=== PATIENT | female | born 1965 | race Caucasian/White ===

== ENCOUNTER 2017-02-05 07:15 | Inpatient (IN) | payer MEDICAID ==
[2017-02-19] MEDS ORDERED: Celecoxib 200 MG Cap PO ONE (07:00)
[2017-02-19] MEDS ORDERED: Scopolamine 1.5 MG Transdermal Patch TRDERM SCH (07:00)
[2017-02-19] MEDS ORDERED: Succinylcholine/Normal Saline 200 MG/10 ML Syringe ONE (07:13)
[2017-02-19] MEDS ORDERED: fentaNYL 250 MCG/5 ML SDV ONE (07:13)
[2017-02-19] MEDS ORDERED: Neostigmine Methylsulfate 1 MG/ML 5 ML Syringe ONE (07:13)
[2017-02-19] MEDS ORDERED: Ondansetron 4 MG/2 ML SDV ONE (07:13)
[2017-02-19] MEDS ORDERED: Propofol 200 MG/20 ML SDV ONE (07:13)
[2017-02-19] MEDS ORDERED: Dexamethasone 4 MG/ML SDV ONE (07:13)
[2017-02-19] MEDS ORDERED: Rocuronium 50 MG/5 ML Vial ONE (07:13)
[2017-02-19] MEDS ORDERED: Albuterol/Ipratropium 3.0-0.5 MG/3 ML Neb Soln NEB ONE (08:00)
[2017-02-19] MEDS ORDERED: Dextrose 5%-Lactated Ringers 1,000 ML IV SCH (08:00)
[2017-02-19] MEDS ORDERED: Lactated Ringers 1,000 ML ONE (08:27)
[2017-02-19] MEDS ORDERED: Levofloxacin 500 MG/20 ML SDV ONE (08:36)
[2017-02-19] MEDS ORDERED: Levofloxacin/Dextrose 5%-Water 500 MG in Premix Bag 1 BAG IV ONE (09:00)
[2017-02-19] MEDS ORDERED: Ketamine 500 MG/5 ML MDV IV SCH (09:45)
[2017-02-19] MEDS ORDERED: Ropivacaine 60 ML, Dexamethasone 8 MG, EPINEPHrine 0.4 MG, Sodium Chloride 0.9% 17.6 ML NERVRT SCH ×4 (09:45)
[2017-02-19] MEDS ORDERED: Lidocaine 2% 100 MG/5 ML Syringe IVPUSH ONE (09:45)
[2017-02-19] MEDS ORDERED: Metoclopramide 10 MG/2 ML SDV IVPUSH ONE (12:00)
[2017-02-19] MEDS ORDERED: HYDROmorphone 1 MG/ML Syringe IVPUSH ONE (12:00)
[2017-02-19] MEDS ORDERED: Insulin Aspart 100 Units/ML 3 ML Pen SUBCUT ONE (12:10)
[2017-02-19] MEDS ORDERED: Meperidine PF 100 MG/ML Syringe IM ONE (12:18)
[2017-02-19] MEDS ORDERED: Albuterol/Ipratropium 3.0-0.5 MG/3 ML Neb Soln INH PRN (15:10)
[2017-02-19] MEDS ORDERED: Naloxone 0.4 MG/ML SDV IV PRN (15:18)
[2017-02-19] MEDS ORDERED: HYDROmorphone/Normal Saline 15 MG/30 ML PCA IV PRN (15:18)
[2017-02-19] MEDS ORDERED: diphenhydrAMINE 50 MG/ML SDV IV PRN (15:21)
[2017-02-19] MEDS ORDERED: hydrOXYzine HCl 50 MG/ML SDV IM PRN (16:00)
[2017-02-19] MEDS ORDERED: Ondansetron 4 MG/2 ML SDV IVPUSH PRN (16:00)
[2017-02-19] MEDS ORDERED: Labetalol 20 MG/4 ML Syringe IVPUSH PRN (16:00)
[2017-02-19] MEDS: Albuterol/Ipratropium 3.0-0.5 MG/3 ML Neb Soln INH SCH ×2 (16:29→21:09)
[2017-02-19] MEDS: Lidocaine 0.4%/D5W 2 GM/500 ML BAG IV SCH (16:29)
[2017-02-19] MEDS: FENTANYL PATCH CHECK TOP SCH ×2 (16:31→21:07)
[2017-02-19] MEDS: MVI, Adult with Vitamin K 10 ML, Thiamine 200 MG, Chromium/Copper/Mang/Selen/Zn 1 ML in... IV SCH ×4 (16:44)
[2017-02-19] MEDS: Pantoprazole 40 MG Vial IVPUSH SCH (16:45)
[2017-02-19] MEDS: Heparin Sodium 5,000 Units/ML Vial SUBCUT SCH (18:05)
[2017-02-19] MEDS: Formoterol/Mometasone 200-5 MCG 8.8 GM Inhaler IH SCH (21:07)
[2017-02-19] MEDS ORDERED: Insulin Aspart 100 Units/ML 3 ML Pen SUBCUT STA (22:08)
[2017-02-19] MEDS ORDERED: Insulin Detemir 100 Units/ML 3 ML Pen SUBCUT STA (22:08)
[2017-02-19] MEDS: Dextrose 5%-Lactated Ringers 1,000 ML IV SCH (22:33)
[2017-02-20] MEDS: Dextrose 5%-Lactated Ringers 1,000 ML IV SCH ×2 (03:03→11:04)
[2017-02-20] MEDS: Metoclopramide 10 MG/2 ML SDV IV PRN ×2 (03:17→16:08)
[2017-02-20] MEDS: Lidocaine 0.4%/D5W 2 GM/500 ML BAG IV SCH (03:25)
[2017-02-20] MEDS: Insulin Aspart 100 Units/ML 3 ML Pen SUBCUT PRN ×4 (04:17→22:21)
[2017-02-20] MEDS: Heparin Sodium 5,000 Units/ML Vial SUBCUT SCH ×2 (05:46→17:41)
[2017-02-20] MEDS ORDERED: Ondansetron 4 MG/2 ML SDV ONE (06:58)
[2017-02-20] MEDS: Albuterol/Ipratropium 3.0-0.5 MG/3 ML Neb Soln INH SCH ×4 (07:34→20:58)
[2017-02-20] MEDS: Formoterol/Mometasone 200-5 MCG 8.8 GM Inhaler IH SCH ×4 (07:36→21:27)
[2017-02-20] MEDS ORDERED: Docusate Sodium 100 MG Cap PO PRN (07:39)
[2017-02-20] MEDS ORDERED: ClonazePAM 0.5 MG Tab PO PRN (07:39)
[2017-02-20] MEDS ORDERED: Hypromellose 0.4% Ophth Soln 15 ML Bottle EYEBOTH PRN (07:39)
[2017-02-20] MEDS ORDERED: Albuterol 8 GM Inhaler INH PRN (07:39)
[2017-02-20] MEDS ORDERED: fentaNYL 25 MCG/HR Transdermal Patch TRDERM SCH (07:45)
[2017-02-20] MEDS ORDERED: Insulin Detemir 100 Units/ML 3 ML Pen SUBCUT ONE ×2 (08:00→20:00)
[2017-02-20] MEDS ORDERED: Dextrose 5%-Lactated Ringers 1,000 ML IV SCH ×2 (08:00→12:00)
[2017-02-20] MEDS: Promethazine 25 MG Tab PO PRN ×2 (08:06→18:11)
[2017-02-20] MEDS: Levofloxacin/Dextrose 5%-Water 500 MG in Premix Bag 1 BAG IV SCH (08:27)
[2017-02-20] MEDS: Celecoxib 200 MG Cap PO SCH (08:27)
[2017-02-20] MEDS: fentaNYL 25 MCG/HR Transdermal Patch TRDERM SCH (08:39)
[2017-02-20] MEDS: FENTANYL PATCH CHECK TOP SCH ×2 (09:20→20:59)
[2017-02-20] MEDS: Potassium Chloride 10 MEQ Cap.ER PO SCH ×3 (09:20→21:00)
[2017-02-20] MEDS: SCOPOLAMINE PATCH CHECK TOP SCH (09:21)
[2017-02-20] MEDS: Furosemide 40 MG Tab PO SCH (09:21)
[2017-02-20] MEDS: Loratadine 10 MG Tab.DIS PO SCH (09:23)
[2017-02-20] MEDS: Topiramate 100 MG Tab PO SCH ×2 (09:40→21:00)
[2017-02-20] MEDS: Fluticasone Propionate Nasal Spray 16 GM Bottle NASBOTH SCH ×2 (09:41→20:58)
[2017-02-20] MEDS: Modafinil 100 MG Tab PO SCH (09:49)
--- NOTE | 2017-02-20 10:23 | PN ---
DATE OF SERVICE: 02/20/2017 SUBJECTIVE: Tarah Reynoso is a 52-year-old female. She is postop day #1. Blood sugars have been 300, 430, 301, 436. Since surgery, she received 15 units of Levemir every 12 hours plus sliding scale. Pain is controlled. 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 Currently reporting some nausea, otherwise has had no other postoperative symptoms. OBJECTIVE: GENERAL: Tarah Reynoso is a 52-year-old female. She is alert and orientated. VITAL SIGNS: TPR is 100.5, 111, 18, blood pressure 119/60. HEENT: Negative. NECK: Supple. HEART: Regular rate and rhythm. LUNGS: Clear. ABDOMEN: Dressings dry and intact. Abdominal binder is on. Her MAJO drain put out 135 mL of a light pink serous drainage. EXTREMITIES: Without peripheral edema. ASSESSMENT: Laparoscopic gastric bypass surgery, liver biopsy, repair of diaphragmatic hernia, and excision of mediastinal lipoma for morbid obesity. Diaphragmatic hernia, lipoma, hepatomegaly. PLAN: 1. Decrease IV to 100 mL per hour. 2. Step-2 gastric bypass diet without cereal. 3. Levemir 25 units now subcutaneous. 4. Levemir 20 units subcutaneous at bedtime. 5. Home medications restarted. Phenergan 25 mg p.o. q.6 hours p.r.n. nausea; oxycodone 1 tablet p.o. t.i.d. p.r.n. pain; clonazepam 0.5 mg p.o. daily p.r.n.; albuterol inhaler 2 puffs every 4 hours p.r.n. wheezing and shortness of breath; Symbicort 160/4.5 mcg inhaler 2 puffs inhaled b.i.d.; estradiol/Estrace vaginal cream one applicator on Sunday, Sunday, and Sunday; Flonase 1 spray in each nostril b.i.d.; furosemide/Lasix 40 mg p.o. daily; Latuda 60 mg p.o. at bedtime, Claritin chewable 10 mg p.o. daily; modafinil 200 mg p.o. daily; potassium chloride 10 mEq p.o. t.i.d.; topiramate 100 mg b.i.d.; trazodone 150 mg p.o. at bedtime, fentanyl/Duragesic patch 25 mcg transderm every 72 hours; Wellbutrin 75 mg p.o. b.i.d. 6. 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 7. Dressing off. May shower. 8. Good pulmonary toilet encouraged. 9. Walk q.i.d. 10.We will evaluate p.r.n. or in a.m. Delia Lee PA-C /[id number]
[2017-02-20] MEDS: oxyCODONE 5 MG Tab PO PRN ×2 (10:26→18:11)
[2017-02-20] MEDS: Pantoprazole 40 MG Vial IVPUSH SCH (15:32)
[2017-02-20] MEDS: MVI, Adult with Vitamin K 10 ML, Thiamine 200 MG, Chromium/Copper/Mang/Selen/Zn 1 ML in... IV SCH ×4 (17:40)
[2017-02-20] MEDS: traZODone 50 MG Tab PO SCH (20:57)
[2017-02-20] MEDS: Lurasidone 40 MG Tab PO SCH (20:59)
[2017-02-20] MEDS: HYDROmorphone 2 MG Tab PO PRN (21:01)
[2017-02-21] MEDS: HYDROmorphone 2 MG Tab PO PRN (04:22)
[2017-02-21] MEDS: Insulin Aspart 100 Units/ML 3 ML Pen SUBCUT PRN ×4 (04:32→22:02)
[2017-02-21] MEDS: Heparin Sodium 5,000 Units/ML Vial SUBCUT SCH ×2 (06:01→17:56)
[2017-02-21] MEDS: Albuterol/Ipratropium 3.0-0.5 MG/3 ML Neb Soln INH SCH ×4 (07:14→20:32)
[2017-02-21] MEDS: Formoterol/Mometasone 200-5 MCG 8.8 GM Inhaler IH SCH ×2 (07:16→20:32)
[2017-02-21] MEDS: Metoclopramide 10 MG/2 ML SDV IV PRN (08:02)
[2017-02-21] MEDS: Levofloxacin/Dextrose 5%-Water 500 MG in Premix Bag 1 BAG IV SCH (08:28)
[2017-02-21] MEDS: Fluticasone Propionate Nasal Spray 16 GM Bottle NASBOTH SCH ×2 (08:29→20:35)
[2017-02-21] MEDS: metFORMIN 500 MG Tab PO SCH ×2 (08:29→16:38)
[2017-02-21] MEDS: Furosemide 40 MG Tab PO SCH (08:30)
[2017-02-21] MEDS: Celecoxib 200 MG Cap PO SCH (08:31)
[2017-02-21] MEDS: Potassium Chloride 10 MEQ Cap.ER PO SCH ×3 (08:32→20:34)
[2017-02-21] MEDS: Insulin Detemir 100 Units/ML 3 ML Pen SUBCUT SCH ×2 (08:39→22:01)
[2017-02-21] MEDS: Loratadine 10 MG Tab.DIS PO SCH (08:40)
[2017-02-21] MEDS: FENTANYL PATCH CHECK TOP SCH ×2 (08:41→20:33)
[2017-02-21] MEDS: SCOPOLAMINE PATCH CHECK TOP SCH (08:41)
[2017-02-21] MEDS: Modafinil 100 MG Tab PO SCH (08:47)
[2017-02-21] MEDS: Topiramate 100 MG Tab PO SCH ×2 (08:50→20:34)
[2017-02-21] MEDS ORDERED: ESTRADIOL VAG SCH (09:00)
[2017-02-21] MEDS ORDERED: Cyanocobalamin (Vitamin B12) 1,000 MCG/ML SDV IM ONE (09:00)
[2017-02-21] MEDS: Promethazine 25 MG Tab PO PRN ×2 (09:23→16:46)
--- NOTE | 2017-02-21 10:04 | PN ---
DATE OF SERVICE: 02/21/2017 SUBJECTIVE: Tarah had a temp max of 101.7. Blood sugars have been 304 and 240. She received 25 units of Levemir in the morning and 20 at bedtime. She has needed much encouragement in ambulating. OBJECTIVE: GENERAL: Tarah Reynoso is a 52-year-old female. VITAL SIGNS: TPR is 99.5, 111, 24, blood pressure is 126/59. HEENT: Negative. NECK: Supple. HEART: Regular rate and rhythm. LUNGS: Clear. ABDOMEN: Dressings dry and intact. Abdominal binder is on. EXTREMITIES: Without peripheral edema. ASSESSMENT: Laparoscopic gastric bypass surgery, liver biopsy, repair of diaphragmatic hernia, and excision of mediastinal lipoma for morbid obesity, diaphragmatic hernia, lipoma, and hepatomegaly on 02/19/2017. PLAN: 1. Metformin 1000 mg b.i.d. crush/split, or if unable to take a pill form, may try liquid. 2. Levemir 25 units subcutaneous b.i.d. 3. Continue good pulmonary toilet. 4. Record oral intake at bedside, 3 med cups per hour. 5. Recommend 8 short walks daily. Much encouragement given. 6. We will evaluate p.r.n. or in a.m. Delia Lee PA-C /[id number]
[2017-02-21] MEDS: oxyCODONE 5 MG Tab PO PRN ×2 (14:08→20:18)
[2017-02-21] MEDS: traZODone 50 MG Tab PO SCH (20:18)
[2017-02-21] MEDS: Lurasidone 40 MG Tab PO SCH (20:33)
[2017-02-22] MEDS: Heparin Sodium 5,000 Units/ML Vial SUBCUT SCH ×2 (06:01→17:04)
[2017-02-22] MEDS: Promethazine 25 MG Tab PO PRN (07:59)
[2017-02-22] MEDS: Formoterol/Mometasone 200-5 MCG 8.8 GM Inhaler IH SCH ×3 (08:45→20:40)
[2017-02-22] MEDS: Albuterol/Ipratropium 3.0-0.5 MG/3 ML Neb Soln INH SCH ×4 (08:45→20:39)
[2017-02-22] MEDS: Fluticasone Propionate Nasal Spray 16 GM Bottle NASBOTH SCH ×2 (09:30→20:37)
[2017-02-22] MEDS: Insulin Detemir 100 Units/ML 3 ML Pen SUBCUT SCH ×2 (09:32→21:00)
[2017-02-22] MEDS: FENTANYL PATCH CHECK TOP SCH ×2 (09:36→20:37)
[2017-02-22] MEDS: SCOPOLAMINE PATCH CHECK TOP SCH (09:37)
[2017-02-22] MEDS: Metoclopramide 10 MG Tab PO PRN ×2 (10:44→18:41)
[2017-02-22] MEDS: Celecoxib 200 MG Cap PO SCH (11:02)
[2017-02-22] MEDS: metFORMIN 500 MG Tab PO SCH ×2 (11:02→17:02)
[2017-02-22] MEDS: Potassium Chloride 10 MEQ Cap.ER PO SCH ×3 (11:03→20:38)
[2017-02-22] MEDS: Furosemide 40 MG Tab PO SCH (11:04)
[2017-02-22] MEDS: Modafinil 100 MG Tab PO SCH (11:04)
[2017-02-22] MEDS: Topiramate 100 MG Tab PO SCH ×2 (11:04→20:39)
[2017-02-22] MEDS: Loratadine 10 MG Tab.DIS PO SCH (11:05)
[2017-02-22] MEDS: Insulin Aspart 100 Units/ML 3 ML Pen SUBCUT PRN ×2 (15:59→21:00)
[2017-02-22] MEDS: oxyCODONE 5 MG Tab PO PRN (18:41)
[2017-02-22] MEDS: Lurasidone 40 MG Tab PO SCH (20:37)
[2017-02-22] MEDS: traZODone 50 MG Tab PO SCH (20:40)
[2017-02-23] MEDS: oxyCODONE 5 MG Tab PO PRN ×3 (04:41→20:49)
[2017-02-23] MEDS: Metoclopramide 10 MG Tab PO PRN (04:41)
[2017-02-23] MEDS: Heparin Sodium 5,000 Units/ML Vial SUBCUT SCH ×2 (06:05→17:55)
[2017-02-23] MEDS: Albuterol/Ipratropium 3.0-0.5 MG/3 ML Neb Soln INH SCH ×4 (07:54→21:02)
[2017-02-23] MEDS: Formoterol/Mometasone 200-5 MCG 8.8 GM Inhaler IH SCH ×2 (07:54→20:50)
[2017-02-23] MEDS: Insulin Detemir 100 Units/ML 3 ML Pen SUBCUT SCH ×2 (08:22→21:30)
[2017-02-23] MEDS: metFORMIN 500 MG Tab PO SCH ×2 (08:24→17:55)
[2017-02-23] MEDS: Loratadine 10 MG Tab.DIS PO SCH (08:25)
[2017-02-23] MEDS: Furosemide 40 MG Tab PO SCH (08:25)
[2017-02-23] MEDS: Topiramate 100 MG Tab PO SCH ×2 (08:25→20:50)
[2017-02-23] MEDS: Celecoxib 200 MG Cap PO SCH (08:25)
[2017-02-23] MEDS: Potassium Chloride 10 MEQ Cap.ER PO SCH ×3 (08:26→20:50)
[2017-02-23] MEDS: Fluticasone Propionate Nasal Spray 16 GM Bottle NASBOTH SCH ×2 (08:26→20:50)
[2017-02-23] MEDS: fentaNYL 25 MCG/HR Transdermal Patch TRDERM SCH (08:33)
[2017-02-23] MEDS: Modafinil 100 MG Tab PO SCH (08:33)
[2017-02-23] MEDS: FENTANYL PATCH CHECK TOP SCH ×2 (08:34→20:51)
[2017-02-23] MEDS: SCOPOLAMINE PATCH CHECK TOP SCH (08:35)
--- NOTE | 2017-02-23 10:08 | PN ---
DATE OF SERVICE: 02/22/2017 The patient has now become afebrile. Pulmonary toilet appears to be fairly good. Oral intake has been decent as well. She is on oral pain medication along with fentanyl patch. The blood sugar this morning is 122 so I think we will move the Levemir down to 10 units q.12 hours and continue with the metformin. She is complaining of some nausea, her IV is out and I will offer some oral Zofran. The plan will be to keep the patient until Sunday due to social issues and in terms of her living situation in [place]. This will also be helpful in terms of fine tuning her diabetic management over the next few days. Mj Sibley MD /[id number]
[2017-02-23] MEDS: Insulin Aspart 100 Units/ML 3 ML Pen SUBCUT PRN ×2 (12:50→21:30)
[2017-02-23] MEDS: traZODone 50 MG Tab PO SCH (20:49)
[2017-02-23] MEDS: Lurasidone 40 MG Tab PO SCH (20:51)
[2017-02-24] MEDS: Metoclopramide 10 MG Tab PO PRN ×3 (04:15→20:40)
[2017-02-24] MEDS: Insulin Aspart 100 Units/ML 3 ML Pen SUBCUT PRN ×4 (04:34→22:07)
[2017-02-24] MEDS: Promethazine 25 MG Tab PO PRN ×2 (06:20→17:30)
[2017-02-24] MEDS: Heparin Sodium 5,000 Units/ML Vial SUBCUT SCH ×2 (06:21→17:22)
[2017-02-24] MEDS: Albuterol/Ipratropium 3.0-0.5 MG/3 ML Neb Soln INH SCH ×4 (07:22→21:47)
[2017-02-24] MEDS: Formoterol/Mometasone 200-5 MCG 8.8 GM Inhaler IH SCH ×2 (07:22→21:48)
[2017-02-24] MEDS: Fluticasone Propionate Nasal Spray 16 GM Bottle NASBOTH SCH ×2 (08:59→21:48)
[2017-02-24] MEDS: Loratadine 10 MG Tab.DIS PO SCH (09:00)
[2017-02-24] MEDS: Topiramate 100 MG Tab PO SCH ×2 (09:00→21:48)
[2017-02-24] MEDS ORDERED: Potassium Chloride 10% 20 MEQ/15 ML Soln 15 ML UD Cup PO SCH (09:00)
[2017-02-24] MEDS: Celecoxib 200 MG Cap PO SCH (09:00)
[2017-02-24] MEDS: Furosemide 40 MG Tab PO SCH (09:00)
[2017-02-24] MEDS: metFORMIN 500 MG Tab PO SCH ×2 (09:00→17:22)
[2017-02-24] MEDS ORDERED: Magnesium Hydroxide 400 MG/5 ML Susp 30 ML Cup PO PRN (09:02)
[2017-02-24] MEDS: FENTANYL PATCH CHECK TOP SCH ×2 (09:02→21:48)
[2017-02-24] MEDS: SCOPOLAMINE PATCH CHECK TOP SCH (09:03)
[2017-02-24] MEDS: Bisacodyl 5 MG Tab PO SCH ×2 (09:52→21:48)
[2017-02-24] MEDS: Modafinil 100 MG Tab PO SCH (09:58)
[2017-02-24] MEDS ORDERED: Magnesium Hydroxide 400 MG/5 ML Susp 30 ML Cup PO ONE (10:00)
[2017-02-24] MEDS: oxyCODONE 5 MG Tab PO PRN ×2 (10:26→22:13)
[2017-02-24] MEDS: Insulin Detemir 100 Units/ML 3 ML Pen SUBCUT SCH ×2 (11:01→22:08)
[2017-02-24] MEDS ORDERED: Sodium Chloride 0.9% 10 ML Syringe FLUSH PRN (11:12)
[2017-02-24] MEDS ORDERED: Potassium Phosphates 20 MMOLE in Sodium Chloride 0.9% 250 ML IV SCH (13:00)
[2017-02-24] MEDS: traZODone 50 MG Tab PO SCH (21:48)
[2017-02-24] MEDS: Lurasidone 40 MG Tab PO SCH (21:48)
[2017-02-25] MEDS: Heparin Sodium 5,000 Units/ML Vial SUBCUT SCH ×2 (06:48→17:47)
[2017-02-25] MEDS: Albuterol/Ipratropium 3.0-0.5 MG/3 ML Neb Soln INH SCH ×4 (07:29→20:32)
[2017-02-25] MEDS: Formoterol/Mometasone 200-5 MCG 8.8 GM Inhaler IH SCH ×2 (07:29→20:24)
[2017-02-25] MEDS: Bisacodyl 5 MG Tab PO SCH ×2 (08:47→20:23)
[2017-02-25] MEDS: metFORMIN 500 MG Tab PO SCH ×2 (08:47→17:46)
[2017-02-25] MEDS: Celecoxib 200 MG Cap PO SCH (08:47)
[2017-02-25] MEDS: Furosemide 40 MG Tab PO SCH (08:48)
[2017-02-25] MEDS: Topiramate 100 MG Tab PO SCH ×2 (08:48→20:26)
[2017-02-25] MEDS: Fluticasone Propionate Nasal Spray 16 GM Bottle NASBOTH SCH ×2 (08:49→20:24)
[2017-02-25] MEDS: Loratadine 10 MG Tab.DIS PO SCH (08:49)
[2017-02-25] MEDS: SCOPOLAMINE PATCH CHECK TOP SCH (08:50)
[2017-02-25] MEDS: FENTANYL PATCH CHECK TOP SCH ×2 (08:50→20:27)
[2017-02-25] MEDS: oxyCODONE 5 MG Tab PO PRN ×2 (08:55→15:55)
[2017-02-25] MEDS: LORazepam 1 MG Tab PO PRN ×2 (08:56→22:22)
[2017-02-25] MEDS: Modafinil 100 MG Tab PO SCH (10:04)
[2017-02-25] MEDS: Insulin Detemir 100 Units/ML 3 ML Pen SUBCUT SCH ×2 (10:05→22:19)
[2017-02-25] MEDS: Insulin Aspart 100 Units/ML 3 ML Pen SUBCUT PRN (10:06)
[2017-02-25] MEDS: traZODone 50 MG Tab PO SCH (20:22)
[2017-02-25] MEDS: Lurasidone 40 MG Tab PO SCH (20:25)
[2017-02-26] MEDS: Heparin Sodium 5,000 Units/ML Vial SUBCUT SCH ×2 (06:01→18:39)
[2017-02-26] MEDS: Albuterol/Ipratropium 3.0-0.5 MG/3 ML Neb Soln INH SCH ×4 (07:38→20:48)
[2017-02-26] MEDS: Formoterol/Mometasone 200-5 MCG 8.8 GM Inhaler IH SCH ×2 (07:39→20:41)
[2017-02-26] MEDS: metFORMIN 500 MG Tab PO SCH ×2 (08:08→16:37)
[2017-02-26] MEDS ORDERED: Insulin Detemir 100 Units/ML 3 ML Pen SUBCUT ONE (09:00)
[2017-02-26] MEDS: Bisacodyl 5 MG Tab PO SCH ×2 (09:06→20:41)
[2017-02-26] MEDS: Celecoxib 200 MG Cap PO SCH (09:06)
[2017-02-26] MEDS: Loratadine 10 MG Tab.DIS PO SCH (09:06)
[2017-02-26] MEDS: Furosemide 40 MG Tab PO SCH (09:06)
[2017-02-26] MEDS: Fluticasone Propionate Nasal Spray 16 GM Bottle NASBOTH SCH ×2 (09:06→20:41)
[2017-02-26] MEDS: Modafinil 100 MG Tab PO SCH (09:07)
[2017-02-26] MEDS: Topiramate 100 MG Tab PO SCH ×2 (09:07→20:44)
[2017-02-26] MEDS: FENTANYL PATCH CHECK TOP SCH ×2 (09:08→20:43)
[2017-02-26] MEDS: SCOPOLAMINE PATCH CHECK TOP SCH (09:09)
[2017-02-26] MEDS: fentaNYL 25 MCG/HR Transdermal Patch TRDERM SCH (09:20)
--- NOTE | 2017-02-26 10:26 | PN ---
DATE OF SERVICE: 02/26/2017 SUBJECTIVE: Tarah had a total intake of 1390. She is voiding without difficulty. Blood sugars the last 2 have been 116 and 103. She did receive Levemir 15 units one time yesterday morning that was held last night due to a blood sugar of 116. She is up ambulating and has no questions or concerns today. Pain has been controlled. OBJECTIVE: GENERAL: Tarah Reynoso is a 52-year-old female. She is alert and orientated. VITAL SIGNS: Temperature is 98.9, pulse rate is 89, respirations 16, and blood pressure 133/68. HEENT: Negative. NECK: Supple. HEART: Regular rate and rhythm. LUNGS: Clear. ABDOMEN: Incisions look good. MAJO drain has put out 10 mL of a pink, serous drainage. EXTREMITIES: Without peripheral edema. ASSESSMENT: 1. Laparoscopic gastric bypass surgery, liver biopsy, repair of diaphragmatic hernia, excision of mediastinal lipoma for morbid obesity, diaphragmatic hernia, lipoma, and hepatomegaly on 02/19/2017. 2. Diabetes. PLAN: 1. Levemir 10 units subcu today one time only, ask in a.m. Continue good oral intake. 2. We will evaluate p.r.n. or in a.m. Delia Lee PA-C /[id number]
[2017-02-26] MEDS: LORazepam 1 MG Tab PO PRN ×2 (13:08→21:07)
[2017-02-26] MEDS: Insulin Aspart 100 Units/ML 3 ML Pen SUBCUT PRN ×2 (13:09→16:40)
[2017-02-26] MEDS: oxyCODONE 5 MG Tab PO PRN (17:34)
[2017-02-26] MEDS: traZODone 50 MG Tab PO SCH (20:39)
[2017-02-26] MEDS: Lurasidone 40 MG Tab PO SCH (20:42)
[2017-02-27] MEDS: Insulin Aspart 100 Units/ML 3 ML Pen SUBCUT PRN ×4 (04:22→21:57)
[2017-02-27] MEDS: Heparin Sodium 5,000 Units/ML Vial SUBCUT SCH ×2 (06:45→17:06)
[2017-02-27] MEDS ORDERED: Bupivacaine 0.5%/EPINEPHrine 1:200,000 50 ML MDV ONE (06:51)
[2017-02-27] MEDS ORDERED: Lidocaine 1% 50 ML MDV ONE (06:51)
[2017-02-27] MEDS: oxyCODONE 5 MG Tab PO PRN ×2 (07:08→20:13)
[2017-02-27] MEDS: Albuterol/Ipratropium 3.0-0.5 MG/3 ML Neb Soln INH SCH ×4 (07:31→21:52)
[2017-02-27] MEDS: Formoterol/Mometasone 200-5 MCG 8.8 GM Inhaler IH SCH ×2 (07:32→21:52)
[2017-02-27] MEDS: metFORMIN 500 MG Tab PO SCH ×2 (07:59→17:05)
[2017-02-27] MEDS: Bisacodyl 5 MG Tab PO SCH ×2 (08:42→20:19)
[2017-02-27] MEDS: Fluticasone Propionate Nasal Spray 16 GM Bottle NASBOTH SCH ×2 (08:44→21:53)
[2017-02-27] MEDS: Loratadine 10 MG Tab.DIS PO SCH (08:45)
[2017-02-27] MEDS: Furosemide 40 MG Tab PO SCH (08:46)
[2017-02-27] MEDS: Celecoxib 200 MG Cap PO SCH (08:46)
[2017-02-27] MEDS: FENTANYL PATCH CHECK TOP SCH ×2 (08:47→22:00)
[2017-02-27] MEDS: SCOPOLAMINE PATCH CHECK TOP SCH (08:47)
[2017-02-27] MEDS: Topiramate 100 MG Tab PO SCH ×2 (08:48→21:54)
[2017-02-27] MEDS: Insulin Detemir 100 Units/ML 3 ML Pen SUBCUT SCH ×2 (08:52→21:58)
[2017-02-27] MEDS: Modafinil 100 MG Tab PO SCH (08:58)
--- NOTE | 2017-02-27 09:04 | PN ---
DATE OF SERVICE: 02/23/2017 The patient has had a T-max of 100.0. Vital signs are otherwise stable. Oral intake was quite a bit better yesterday with the addition of Reglan and all these appeared to be well controlled. Blood sugars are somewhat high during the day yesterday, but apparently she was not able to take her morning metformin dose, so we gave Levemir 10 units q.12 level today in anticipation of getting the metformin in this morning. After the evening dose of the metformin had been given it was down to 179 otherwise we'll recheck some labs in the morning and maximize activity and work with pulmonary toilet. Mj Sibley MD /[id number]
--- NOTE | 2017-02-27 09:04 | PN ---
DATE OF SERVICE: 02/24/2017 The patient has been afebrile with stable vital signs. Oral intake is fairly good, although she does have some intermittent nausea. Her blood sugar is still running a little bit high. She is a type 1 diabetic, so we will not get her off insulin. We will move the Levemir up to 15 units from 10 units b.i.d. We will also give some bowel stimulation. MAJO drain can be removed tomorrow tentatively. Plan discharge on Sunday given the underlying social situation. Mj Sibley MD /[id number]
--- NOTE | 2017-02-27 09:05 | PN ---
DATE OF SERVICE: 02/25/2017 The patient has been afebrile with stable vital signs. Main problem is poor oral intake. She complains of some persistent nausea. We are unable to get an IV started. We'll try adding some Ativan today to the medication regimen. This may help with the nausea as well as some of the anxiety associated with that. Otherwise, I think we need to place a Miranda catheter, we will plan this for Sunday. If anesthesia would start an IV at some location we could give her some IV sedation plus local. Otherwise, we will use nitrous oxide plus local. Potential risks including bleeding, infection, pneumohemothorax and such were reviewed, and the patient wishes to proceed. The procedure will be scheduled for Sunday. Otherwise, her blood sugar control with increased Levemir dose was somewhat better and we will possibly try to get some oral intake over the next day or so. Mj Sibley MD /[id number]
[2017-02-27] MEDS: LORazepam 1 MG Tab PO PRN ×2 (15:20→20:51)
[2017-02-27] MEDS: traZODone 50 MG Tab PO SCH (20:13)
[2017-02-27] MEDS: Lurasidone 40 MG Tab PO SCH (21:54)
[2017-02-28] MEDS: Heparin Sodium 5,000 Units/ML Vial SUBCUT SCH (06:00)
[2017-02-28] MEDS: Albuterol/Ipratropium 3.0-0.5 MG/3 ML Neb Soln INH SCH ×2 (07:24→11:08)
[2017-02-28] MEDS: Formoterol/Mometasone 200-5 MCG 8.8 GM Inhaler IH SCH (07:24)
[2017-02-28] MEDS: metFORMIN 500 MG Tab PO SCH (07:53)
[2017-02-28] MEDS: Loratadine 10 MG Tab.DIS PO SCH (09:10)
[2017-02-28] MEDS: Fluticasone Propionate Nasal Spray 16 GM Bottle NASBOTH SCH (09:10)
[2017-02-28] MEDS: Topiramate 100 MG Tab PO SCH (09:11)
[2017-02-28] MEDS: Celecoxib 200 MG Cap PO SCH (09:12)
[2017-02-28] MEDS: Furosemide 40 MG Tab PO SCH (09:12)
[2017-02-28] MEDS: SCOPOLAMINE PATCH CHECK TOP SCH (09:12)
[2017-02-28] MEDS: Bisacodyl 5 MG Tab PO SCH (09:13)
[2017-02-28] MEDS: FENTANYL PATCH CHECK TOP SCH (09:13)
[2017-02-28] MEDS: Insulin Detemir 100 Units/ML 3 ML Pen SUBCUT SCH (09:15)
[2017-02-28] MEDS: Modafinil 100 MG Tab PO SCH (09:19)
[2017-02-28] MEDS: LORazepam 1 MG Tab PO PRN (09:32)
[2017-02-28] MEDS: oxyCODONE 5 MG Tab PO PRN (09:32)
[2017-02-28 10:53] VITALS: BP 130/63
--- NOTE | 2017-02-28 15:17 | OR ---
DATE OF PROCEDURE: 02/19/2017 PREOPERATIVE DIAGNOSIS: Morbid obesity. POSTOPERATIVE DIAGNOSES: 1. Morbid obesity. 2. Marked hepatomegaly. 3. Paraesophageal diaphragmatic hernia. 4. Mediastinal lipoma. ANESTHESIA: General. MANAGER PRODUCT MARKETING: Delia Lee PA-C. INDICATION FOR PROCEDURE: This is a 52-year-old female with longstanding morbid obesity and increasingly significant comorbidities. After preoperative evaluation and discussion, she wished to proceed with a gastric bypass procedure. Potential risks of procedure including bleeding, infection, leaks from various GI tract closures, problems with bowel obstruction over time as well as possibility of cardiopulmonary, septic, or hemorrhagic complications leading to were discussed, and the patient wishes to proceed. DETAILS OF PROCEDURE: The patient was taken to the operating room and placed in a supine position. After general endotracheal anesthesia was induced, she was converted to a lithotomy position. Villarreal catheter was inserted along with the gastrointestinal catheter, and the abdomen was prepped and draped. At 15 cm inferior, 5 cm left of xiphoid process, a transverse incision was made. The peritoneal cavity was entered under direct vision with an Optiview trocar and inflated to 15 mmHg pressure of CO2. Laparoscope was then reinserted. No underlying trocar insertion site injuries were seen. Following this, 5 additional trocars were placed across the upper and mid abdomen. General exploration was undertaken. The patient was noted to have a marked hepatomegaly with liver volume being roughly 2 to 3 times normal. The liver grossly fatty infiltrated. Sam-Cut needle biopsy was obtained from the left lobe of the liver. Minimal bleeding from the biopsy sites was controlled with electrocautery. At this point, the omentum was divided in the midline up to the level of the transverse colon. This allowed identification of the small bowel to the ligament of Treitz. Small bowel was then traced out 200 cm distal and that was divided transversely with a TIERRA stapler. Small bowel was then traced out, an additional 200 cm where the [id number] enteroenterostomy was accomplished with the internal firing of the Endo-TIERRA 60 mm stapler. The common opening was then closed transversely with the same stapler and the angles anastomosed, and mesenteric defect approximated with some 0 Ethibond stitch along with fibrin sealant, divided, end of the Mimi limb was from the mesentery for a few centimeters, which allowed an antecolic position of the Mimi limb up to the level of the gastroesophageal junction without tension. The liver was then retracted anteriorly. The patient was noted to have moderate-sized paraesophageal diaphragmatic hernia. The hernia was reduced and the peritoneum overlying incised and reflected downward. The crura were dissected from the esophagus on each side and then retroesophageal window was established. A posterior crural repair was then accomplished with 0 Ethibond sutures reinforced with PTFE pledgets. One additional suture was then placed anteriorly. During the course of dissection, a roughly ping-pong ball sized mediastinal lipoma was encountered and dissected free and delivered from the field for pathologic exam. At this point, the gastroesophageal balloon was then inflated 15 mL and pulled up snugly against the EG junction. Gastric wall over the apex balloon was then marked with electrocautery, and balloon catheter deflated and pulled up in the esophagus, and the omental tissue adjacent to the gastric cardia was incised allowing dissection behind the stomach at that level. Pouch formation was initiated with a transverse firing of the TIERRA stapler at the cauterized cyril on the gastric cardia. Pouch was then completed with 2 additional firings of TIERRA stapler up to and through the angle of His. Upon completion of the pouch, both staple lines were inspected and found to be intact. The anvil of a 21 mm EEA stapler was then attached to [place] sump type tube. The latter was brought down through the mouth and out through a small opening in the gastric pouch, allowing the anvil likewise to be passed down into the gastric pouch. Divided end of the Mimi limb was then opened and the main body of the EEA stapler was passed several centimeters into the Mimi limb of the small bowel, brought up the anvil, and united with it, thus creating the gastrojejunostomy. Upon removal of the stapler, double donuts of mucosa were noted with it. The small bowel was closed off with a vascular staple line. Gastrojejunostomy was reinforced with some 3-0 Vicryl seromuscular stitch along with fibrin sealant. Leak test was accomplished with injection of 120 mL of air in the gastric pouch while submerged with cefoxitin-containing saline solution. A single 10 flat Brenden-Hines drain was then placed through the left lateral trocar site and placed adjacent to the gastrojejunostomy from there up into the area overlying the splenic fossa. The remaining trocars were removed and peritoneal cavity was deflated. Incisions were closed with some 4- 0 Vicryl skin stitch. Drains were affixed with 4-0 Vicryl stitch as well. The patient was taken to the recovery room in satisfactory condition. There were no evident complications. At the initiation of procedure, the patient had, as part of enhanced recovery protocol bilateral transversus abdominis plane blocks consisting of 40 mL of saline with ropivacaine, dexamethasone, and epinephrine added. Physician home based assistant, Delia Lee, played an essential role in assisting in this case, helping to position the patient, retract structures as needed, suturing and cutting sutures when indicated. Her presence improved the patient's safety and decreased operative time. Mj Sibley MD /[id number]
--- NOTE | 2017-03-01 14:29 | DISCH ---
ADMISSION DIAGNOSES: 1. Morbid obesity. 2. Diabetes type 2, labile and uncontrolled with concerns for noncompliance to various factors, [id number] retinopathy. 3. History of diabetic ketoacidosis. 4. History of partial complex seizure disorder. 5. Possible subsegmental pulmonary embolism. 6. Mild thrombocytopenia in the past. 7. History of MRSA after panniculectomy. 8. Chronic back pain. 9. Peripheral neuropathy. 10.Asthma. 11.Migraines. 12.Urinary retention. 13.Atrophic vaginitis. 14.Osteoporosis. 15.Intermittent orthostatic hypotension with negative cosyntropin stimulation test, mediastinal tumor. 16.Fibromyalgia. 17.Sleep apnea, with use of CPAP. 18.Chronic pain, on opiates contract. 19.Attention deficit disorder without mention of hyperactivity. 20.Multiple sclerosis on verified diagnoses dyslipidemia, myalgia, and myositis. 21.Generalized anxiety disorder. 22.Posttraumatic stress disorder. 23.Major depression, chronic. 24.Asthma, chronic. DISCHARGE DIAGNOSES: 1. Laparoscopic gastric bypass surgery, liver biopsy, repair of diaphragmatic hernia, excision of mediastinal lipoma for morbid obesity, diaphragmatic hernia, lipoma, and hepatomegaly on 02/19/2017. 2. Diabetes type 2. HISTORY: Tarah Reynoso is a 52-year-old female with longstanding history of morbid obesity and increasing comorbidities. After preoperative evaluation and discussion of possible risks and possible complications, she wished to proceed with surgical procedure. HOSPITAL COURSE: Tarah had her surgery on 02/26/2017. She had no operative complications. On postop day #1, she was started on gastric bypass diet step 2 without cereal. She tolerated that well. Her blood sugars were continuously monitored and her insulin was adjusted accordingly. She received daily reinforcement of bariatric diet, education, and received lifestyle followup teaching and behavior therapy as indicated. Tarah's blood sugars were stabilized. Her education was adequate and she was able to verbalize her diet, her changes in medication, protein and liquid intake. She was independent with her activities of daily living. Vital signs were stable. Pain was controlled and she was able to be discharged to assisted living on 02/28/2017. PHYSICAL EXAMINATION: GENERAL: Tarah Reynoso is a 52-year-old female. She is alert and orientated. VITAL SIGNS: TPR 99.1, 89, 18. Blood pressure is 118/49. HEENT: She has no teeth, otherwise negative. NECK: Supple. HEART: Regular rate and rhythm. LUNGS: Clear. ABDOMEN: Sutures will be removed and Steri-Strips applied. Otherwise, soft and nontender. Abdominal binder, declines to wear. EXTREMITIES: Without peripheral edema. DISPOSITION: Discharged to her previous assisted living. FOLLOWUP APPOINTMENT: Delia Lee PA-C on 03/07/2017 at 11:00 a.m. HOME MEDICATIONS: Celebrex 200 mg one b.i.d. for 2 weeks, she has already picked this up at her last visit. Multivitamin 1 chewable twice daily. Tresiba, decrease dose to 20 units daily. Metformin 1000 mg oral twice daily which is a new prescription. She is to continue taking albuterol Ventolin inhaler 2 puffs every 4 hours. Her aspirin, butalbital, caffeine, the Fiorinal 1 tablet oral twice daily p.r.n. headache. Bacitracin ointment apply topical twice daily. Symbicort 160/4.5 mcg inhaler as directed. Klonopin 0.5 mg oral daily as needed for anxiety. Cod liver, vitamin, and petroleum, Otf clear ointment one applicator oral twice daily. Vitamin B12 of 1000 mcg sublingual daily. Dextran one drop both eyes as directed. Gold Pratt ultra diabetic cream one applicator twice daily. Colace 200 mg oral daily. Estrace 0.1% vaginal cream 1 applicator Sunday, Sunday, Sunday. Flonase 1 spray twice daily. Furosemide 40 mg oral daily. Glucagon HCL 1 mg injection as directed. Glucose tablets 3-6 as directed. Tresiba 20 units subcu daily. Imodium 20 mg oral as directed. Claritin 10 mg oral daily. Latuda 60 mg oral at bedtime. Antacid liquid 15 mL every 3 hours p.r.n. heartburn. Milk of magnesia 30 mL oral p.r.n. constipation, meclizine 1 tablet oral every 6 hours. Lubriderm daily moisturizer lotion one applicator twice daily. Modafinil 200 mg oral daily. Mylanta 15 mg oral every 3 hours. Natural fiber therapy 1 teaspoon oral daily. Nitrofurantoin 100 mg oral as directed. Nystatin one oral as needed. Zofran 4 mg oral every 6 hours p.r.n. nausea. Polyethylene glycol 37 mg oral daily. Potassium chloride 10 mEq three times a day. Phenergan 25 mg oral every 6 hours p.r.n. nausea. Topiramate 100 mg oral twice daily. Wellbutrin 75 mg oral twice daily. Klonopin 0.5 mg oral daily p.r.n. anxiety. Duragesic 25 mcg transdermal patch every 72 hours. Diabetic Tussin use as directed for cough. Oxycodone 1 tab three times a day p.r.n. pain. Trazodone 150 mg oral. Stop taking calcium citrate, vitamin D3, Bentyl, ibuprofen, NovoLog insulin, pantoprazole sodium, vitamin B complex. DISCHARGE DIET: Drink 8 to 10 glasses of water a day. Step-2 gastric bypass diet without cereal. ACTIVITY: No lifting greater than 10 pounds for 2 weeks. Activity, walk 8 times daily short distances in the halls of your apartment. Shower bathing, may shower. Keep site clean and dry. Wear abdominal binder for 2 weeks and then as tolerated. SPECIAL INSTRUCTIONS: Use incentive spirometer 10 times every hour while awake for 2 weeks. Check blood sugars 4 times a day and record readings and bring to clinic appointments. Keep a journal of protein and fluid intake and bring to clinic appointments. A prescription of Pro-Uli, protein supplement 4 ounces q.i.d. was written for 1 month with p.r.n. refills.
--- NOTE | 2017-03-12 12:06 | PN ---
DATE OF SERVICE: 02/27/2017 The patient is status post gastric bypass surgery and her Type 1 diabetes that appeared to be getting more controlled and plan is to proceed with discharge home tomorrow. She is arranging her ride and will likely be able to be discharged in the afternoon tomorrow. Mj Sibley MD /[id number]
--- NOTE | 2017-03-19 08:31 | OR ---
DATE OF PROCEDURE: 02/19/2017 ADDENDUM: An addendum to 02/19/2017 dictation. OPERATIVE PROCEDURES: 1. Laparoscopic Mimi-en-Y gastric bypass with long limb gastroenterostomy (30748). 2. Repair of paraesophageal diaphragmatic hernia (41677). 3. 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 4. Sam-Cut needle liver biopsy (11882). Mj Sibley MD /[id number]
== END 2017-02-28 11:32 | disposition home health service (06) | DRG 621 ==
LOC: JP.MS 02-19 05:44 → JP.SDS 02-19 05:44 → EDSTATUS 02-19 09:00 → JP.2SS 02-19 14:25
PROVIDERS: ADMIT Surgery; ATTEND Surgery
PROC: 3E0T3BZ Introduction of Anesthetic Agent into Peripheral Nerves and Plexi, Percutaneous Approach (ICD-10-PCS; principal; 2017-02-19)
PROC: 0D164ZA Bypass Stomach to Jejunum, Percutaneous Endoscopic Approach (ICD-10-PCS; principal; 2017-02-19)
PROC: 0BQS4ZZ (ICD-10-PCS; principal; 2017-02-19)
PROC: 0BQR4ZZ (ICD-10-PCS; principal; 2017-02-19)
PROC: 0FB24ZX Excision of Left Lobe Liver, Percutaneous Endoscopic Approach, Diagnostic (ICD-10-PCS; principal; 2017-02-19)
DX: E66.01 Morbid (severe) obesity due to excess calories (principal); Z68.41 Body mass index [BMI] 40.0-44.9, adult; R16.0 Hepatomegaly, not elsewhere classified; K44.9 Diaphragmatic hernia without obstruction or gangrene; D17.4 Benign lipomatous neoplasm of intrathoracic organs; K76.0 Fatty (change of) liver, not elsewhere classified; E10.42 Type 1 diabetes mellitus with diabetic polyneuropathy; E10.319 Type 1 diabetes mellitus with unspecified diabetic retinopathy without macular edema; Z79.4 Long term (current) use of insulin; J45.909 Unspecified asthma, uncomplicated; G47.30 Sleep apnea, unspecified; Z87.891 Personal history of nicotine dependence; Z88.6 Allergy status to analgesic agent; Z88.1 Allergy status to other antibiotic agents; Z88.0 Allergy status to penicillin; Z91.013 Allergy to seafood; Z88.2 Allergy status to sulfonamides; Z88.8 Allergy status to other drugs, medicaments and biological substances
CPT/HCPCS: 36415; 80048; 80053; 82962; 83036; 83735; 84100; 85025; 86850; 86900; 86901; 88304; 88307; 88313; 94640; 94640-76; A9270-GY; C9113; J0171; J1100; J1170; J1642; J1644; J1956; J2001; J2175; J2405; J2704; J2765; J2795; J3010; J3410; J3411; J3420; J7030; J7042; J7050; J7120; J7620

== ENCOUNTER 2017-03-02 16:01 | Inpatient (IN) | payer MEDICAID ==
[2017-03-02] MEDS ORDERED: Meclizine 25 MG Tab PO PRN (17:08)
[2017-03-02] MEDS ORDERED: Promethazine 25 MG Tab PO PRN (17:23)
[2017-03-02] MEDS ORDERED: Albuterol 8 GM Inhaler INH PRN (18:30)
[2017-03-02] MEDS ORDERED: MVI, Adult with Vitamin K 10 ML, Magnesium Sulfate 2 GM, Folic Acid 1 MG, Thiamine 100 ... IV ONE ×5 (18:30)
[2017-03-02] MEDS ORDERED: Polyethylene Glycol 3350 Powder 17 GM Packet PO PRN (18:30)
[2017-03-02] MEDS ORDERED: Acetaminophen 325 MG Tab PO PRN (18:30)
[2017-03-02] MEDS ORDERED: Acetaminophen 650 MG Supp RECTAL PRN (18:30)
[2017-03-02] MEDS: metFORMIN 500 MG Tab PO SCH (19:46)
[2017-03-02] MEDS: Multivitamins with Iron Tab.Chew PO SCH (21:03)
[2017-03-02] MEDS: traZODone 50 MG Tab PO SCH (21:03)
[2017-03-02] MEDS: oxyCODONE 5 MG Tab PO PRN (21:03)
[2017-03-02] MEDS: Topiramate 100 MG Tab PO SCH (21:03)
[2017-03-02] MEDS: Lurasidone 40 MG Tab PO SCH (21:04)
[2017-03-02] MEDS: Formoterol/Mometasone 200-5 MCG 8.8 GM Inhaler IH SCH (21:04)
[2017-03-02] MEDS: Fluticasone Propionate Nasal Spray 16 GM Bottle NASBOTH SCH (21:05)
[2017-03-02] MEDS ORDERED: Bisacodyl 10 MG Supp RECTAL PRN (21:55)
[2017-03-02] MEDS ORDERED: Lidocaine 1% 2 ML ONE (22:03)
[2017-03-02] MEDS: Potassium Chloride 20 MEQ in Premix Bag 2 BAG IV ONE (22:09)
[2017-03-02] MEDS: Magnesium Hydroxide 400 MG/5 ML Susp 30 ML Cup PO PRN (22:09)
[2017-03-02] MEDS: VERIFY FENT PATCH TOP SCH (22:11)
[2017-03-03] MEDS ORDERED: Lidocaine 1% 2 ML ONE (00:19)
[2017-03-03] MEDS ORDERED: Potassium Chloride 100 ML ONE (00:19)
[2017-03-03] MEDS: Potassium Chloride 20 MEQ in Premix Bag 2 BAG IV ONE (00:23)
[2017-03-03] MEDS: Dextrose 5%-Lactated Ringers 1,000 ML IV SCH ×2 (03:55→13:46)
[2017-03-03] MEDS ORDERED: Lidocaine 1% 50 ML MDV ONE (06:20)
[2017-03-03] MEDS ORDERED: Bupivacaine 0.5%/EPINEPHrine 1:200,000 50 ML MDV ONE (06:20)
[2017-03-03] MEDS ORDERED: Propofol 200 MG/20 ML SDV ONE (07:24)
[2017-03-03] MEDS ORDERED: Linezolid 200 MG/100 ML Bag IV ONE (07:25)
[2017-03-03] MEDS ORDERED: Midazolam 1 MG/ML 2 ML SDV ONE (07:25)
[2017-03-03] MEDS ORDERED: fentaNYL 100 MCG/2 ML SDV ONE (07:25)
[2017-03-03] MEDS: metFORMIN 500 MG Tab PO SCH ×2 (08:45→16:55)
[2017-03-03] MEDS ORDERED: Insulin Aspart 100 Units/ML 3 ML Pen SUBCUT ONE (09:13)
[2017-03-03] MEDS: Multivitamins with Iron Tab.Chew PO SCH ×2 (09:25→20:51)
[2017-03-03] MEDS: Furosemide 40 MG Tab PO SCH (09:26)
[2017-03-03] MEDS: Topiramate 100 MG Tab PO SCH ×2 (09:27→20:55)
[2017-03-03] MEDS: Celecoxib 200 MG Cap PO SCH (09:28)
[2017-03-03] MEDS: Loratadine 10 MG Tab PO SCH (09:29)
[2017-03-03] MEDS: Cyanocobalamin (Vitamin B12) 1,000 MCG Tab PO SCH (09:30)
[2017-03-03] MEDS: Docusate Sodium 100 MG Cap PO SCH (09:31)
[2017-03-03] MEDS: Formoterol/Mometasone 200-5 MCG 8.8 GM Inhaler IH SCH ×2 (09:32→20:51)
[2017-03-03] MEDS: Fluticasone Propionate Nasal Spray 16 GM Bottle NASBOTH SCH ×2 (09:32→20:54)
[2017-03-03] MEDS: VERIFY FENT PATCH TOP SCH ×2 (09:33→20:55)
[2017-03-03] MEDS: Insulin Detemir 100 Units/ML 3 ML Pen SUBCUT SCH (09:36)
[2017-03-03] MEDS: Modafinil 100 MG Tab PO SCH (10:00)
[2017-03-03] MEDS: oxyCODONE 5 MG Tab PO PRN ×2 (10:17→18:14)
[2017-03-03] MEDS ORDERED: 50% Dextrose in Water 50 ML Syringe IVPUSH PRN (12:28)
[2017-03-03] MEDS ORDERED: Glucagon,Human Recombinant 1 MG Vial IM PRN (12:28)
[2017-03-03] MEDS ORDERED: Glucose Gel 15 GM in 37.5 GM Tube PO PRN (12:28)
[2017-03-03] MEDS: Insulin Aspart 100 Units/ML 3 ML Pen SUBCUT PRN (12:38)
[2017-03-03] MEDS: Potassium Phosphates 25 MMOLE in Sodium Chloride 0.9% 250 ML IV SCH ×3 (12:53→20:51)
[2017-03-03] MEDS: Lurasidone 40 MG Tab PO SCH (20:55)
[2017-03-03] MEDS: traZODone 50 MG Tab PO SCH (20:56)
[2017-03-04] MEDS: Dextrose 5%-Lactated Ringers 1,000 ML IV SCH (01:07)
[2017-03-04] MEDS: Formoterol/Mometasone 200-5 MCG 8.8 GM Inhaler IH SCH ×2 (07:43→21:09)
[2017-03-04] MEDS: Insulin Aspart 100 Units/ML 3 ML Pen SUBCUT PRN ×4 (08:05→21:16)
[2017-03-04] MEDS: Fluticasone Propionate Nasal Spray 16 GM Bottle NASBOTH SCH ×2 (08:08→21:10)
[2017-03-04] MEDS: Insulin Detemir 100 Units/ML 3 ML Pen SUBCUT SCH (08:09)
[2017-03-04] MEDS: Cyanocobalamin (Vitamin B12) 1,000 MCG Tab PO SCH (08:10)
[2017-03-04] MEDS: Celecoxib 200 MG Cap PO SCH (08:11)
[2017-03-04] MEDS: Multivitamins with Iron Tab.Chew PO SCH ×2 (08:11→21:10)
[2017-03-04] MEDS: Docusate Sodium 100 MG Cap PO SCH (08:11)
[2017-03-04] MEDS: Topiramate 100 MG Tab PO SCH ×2 (08:11→21:13)
[2017-03-04] MEDS: Loratadine 10 MG Tab PO SCH (08:12)
[2017-03-04] MEDS: Furosemide 40 MG Tab PO SCH (08:12)
[2017-03-04] MEDS: metFORMIN 500 MG Tab PO SCH ×2 (08:12→16:38)
[2017-03-04] MEDS: oxyCODONE 5 MG Tab PO PRN ×2 (08:18→21:11)
[2017-03-04] MEDS: fentaNYL 25 MCG/HR Transdermal Patch TRDERM SCH (08:31)
[2017-03-04] MEDS: VERIFY FENT PATCH TOP SCH ×2 (08:32→21:12)
[2017-03-04] MEDS ORDERED: Sodium Chloride 0.9% 1,000 ML IV SCH (08:45)
--- NOTE | 2017-03-04 09:04 | OR ---
DATE OF PROCEDURE: 03/03/2017 PREOPERATIVE DIAGNOSIS: Limited peripheral venous access. POSTOPERATIVE DIAGNOSIS: Limited peripheral venous access. PROCEDURE: Insertion of double-lumen Miranda catheter via left subclavian vein approach ([id number]). ANESTHESIA: Local plus IV sedation. INDICATION FOR PROCEDURE: This is a 52-year-old status post Mimi-en-Y gastric bypass with very poor peripheral venous access, and this patient needing some IV access intermittently in the next few weeks. A Miranda catheter is to be placed. Potential risks of the procedure including bleeding, infection, pneumothorax, problems with the catheter becoming occluded were all reviewed with the patient and she wishes to proceed. DETAILS OF PROCEDURE: The patient was taken to the operating room and placed in a supine position. IV sedation was administered, after which the upper chest and neck areas were prepped and draped. The left subclavian area was anesthetized with 1% lidocaine and left subclavian vein was cannulated and from there the guidewire moved into the superior vena cava. Some additional local anesthetic was then injected over the left chest wall between at the point roughly 4 fingerbreadths below the initial puncture site and the initial puncture site. The stab wounds were then placed at each location and the tunneling device was placed from the area more inferior to the original puncture site and through this a Miranda catheter was pulled through. The catheter was cut such that the tip would lie in the area of the upper right atrium over the introducer and peel-away catheter. The Miranda catheter was then placed without difficulty. The initial puncture site was closed with a 4- 0 Vicryl subcuticular stitch and Steri-Strips, and Miranda catheter was itself sutured at skin level with 3-0 nylon stitch. Good inflow and outflow was noted. Both ports were flushed with heparinized saline. The patient was taken to the recovery room in satisfactory condition. There were no evident complications. Mj Sibley MD /[id number]
[2017-03-04] MEDS: Modafinil 100 MG Tab PO SCH ×2 (09:50→09:51)
[2017-03-04] MEDS: Metoclopramide 10 MG/2 ML SDV IVPUSH PRN (10:14)
--- NOTE | 2017-03-04 10:20 | PN ---
DATE OF SERVICE: 03/03/2017 HISTORY OF PRESENT ILLNESS: This is a 52-year-old, little over a week, status post Mimi-en- Y gastric bypass with a large amount of social and psychological problems, who is not doing well at home after the gastric bypass, more or less staying in bed most of the time. Given this, she was transferred here and admitted overnight. She has had quite a bit in the way of oral intake, and this morning had a Miranda catheter and diet will be resumed today. Her past medical history, social history, and family history are as per the previous H and P, which is on the chart. MEDICATIONS: Medications are as per the transfer sheets as well. REVIEW OF SYSTEMS: Shows the patient to have relatively poor oral intake and not caring for herself well at home. She has not moved her bowels recently. PHYSICAL EXAMINATION: GENERAL: The patient is alert and afebrile with stable vital signs. HEENT: Unremarkable. HEART: Regular rate and rhythm. S1 and S2 normal. LUNGS: Presently clear. ABDOMEN: Nondistended. She has slight redness of left lateral trocar site, but no signs of infection. PELVIC AND RECTAL: Deferred. LABORATORY DATA: Laboratory on admission showed white count of 12,000 and hemoglobin of 11. Electrolytes showed a marginally low potassium as is the phosphate on the low side. PLAN: The plan will be to continue the IV hydration via the Miranda catheter, which was placed today. She had been off the metformin and that will be restarted this morning, so it will not overly aggressively change the insulin dosage, and see how things go over the next 12 to 24 hours in terms of the additional adjustments to her insulin dosage. The patient is a type 1 diabetic with superimposed type 2 components of insulin resistance, which do significantly gastric bypass. Otherwise, we will maximize activity and work with the patient in terms of oral intake. She will be continued on the step-2 diet. We will be adding some IV vitamins tomorrow. Mj Sibley MD /[id number]
[2017-03-04] MEDS: ClonazePAM 0.5 MG Tab PO PRN (12:59)
[2017-03-04] MEDS ORDERED: Potassium Phosphates 25 MMOLE in Sodium Chloride 0.9% 250 ML IV ONE (13:30)
--- NOTE | 2017-03-04 16:25 | PN ---
DATE OF SERVICE: 03/04/2017 The patient has been afebrile with stable vital signs. Oral intake has been good. The IV has now been turned to normal saline to allow the administration of the IV potassium and with that her blood sugars have become quite good from the combination of the Levemir and metformin. Her potassium remained somewhat low today. We will give her some additional supplemental potassium, phosphate, and potassium acetate. She is allowed to get in the shower. She has been quite cooperative and willing to participate in her care with this hospitalization much better than previously noted. Mj Sibley MD /[id number]
[2017-03-04] MEDS ORDERED: Potassium Phosphates 20 MMOLE in Sodium Chloride 0.9% 150 ML IV ONE (17:30)
[2017-03-04] MEDS: traZODone 50 MG Tab PO SCH (21:12)
[2017-03-04] MEDS: Lurasidone 40 MG Tab PO SCH (21:12)
[2017-03-05] MEDS: Formoterol/Mometasone 200-5 MCG 8.8 GM Inhaler IH SCH ×2 (07:19→20:55)
[2017-03-05] MEDS: Fluticasone Propionate Nasal Spray 16 GM Bottle NASBOTH SCH ×2 (08:20→20:55)
[2017-03-05] MEDS: Celecoxib 200 MG Cap PO SCH (08:20)
[2017-03-05] MEDS: Cyanocobalamin (Vitamin B12) 1,000 MCG Tab PO SCH (08:21)
[2017-03-05] MEDS: Docusate Sodium 100 MG Cap PO SCH (08:22)
[2017-03-05] MEDS: Multivitamins with Iron Tab.Chew PO SCH ×2 (08:22→20:55)
[2017-03-05] MEDS: metFORMIN 500 MG Tab PO SCH ×2 (08:23→17:31)
[2017-03-05] MEDS: Topiramate 100 MG Tab PO SCH ×2 (08:24→20:57)
[2017-03-05] MEDS: Loratadine 10 MG Tab PO SCH (08:24)
[2017-03-05] MEDS: VERIFY FENT PATCH TOP SCH ×2 (08:25→20:56)
[2017-03-05] MEDS: oxyCODONE 5 MG Tab PO PRN ×2 (08:32→20:59)
[2017-03-05] MEDS: Modafinil 100 MG Tab PO SCH (08:33)
[2017-03-05] MEDS: Insulin Aspart 100 Units/ML 3 ML Pen SUBCUT PRN ×2 (08:35→11:39)
[2017-03-05] MEDS: Insulin Detemir 100 Units/ML 3 ML Pen SUBCUT SCH (08:36)
[2017-03-05] MEDS: Potassium Phosphates 20 MMOLE in Sodium Chloride 0.9% 150 ML IV SCH ×2 (08:43→11:39)
--- NOTE | 2017-03-05 09:20 | PN ---
DATE OF SERVICE: 03/05/2017 SUBJECTIVE: Tarah has been up ambulating. Oral intake was 2900. She has been tolerating her diet well. Vital signs have been stable. Blood sugars 249, 294, and 196. Blood sugar this morning was 150. She is on Levemir 20 units and metformin 1000 mg b.i.d. She has been up ambulating. She is in good spirits. Denies any pain. OBJECTIVE: GENERAL: Tarah Reynoso is a 52-year-old female. She is alert and orientated. VITAL SIGNS: TPR 97.4, 83, 17, blood pressure 137/62. HEENT: Negative. NECK: Supple. HEART: Regular rate and rhythm. LUNGS: Clear. ABDOMEN: Soft and nontender. EXTREMITIES: Without peripheral edema. ASSESSMENT: Uncontrolled diabetes, dehydration, status post Mimi-en-Y gastric bypass surgery, morbid obesity, and placement of central line on 03/03/2017. PLAN: 1. Levemir 30 units subcu today. 2. Discontinue Lasix. 3. Potassium acetate IV 60 mEq today. 4. K-Phos 40 mmol IV today. 5. Diabetic education, meet daily to establish good education and follow-through. 6. We will evaluate p.r.n. or in a.m. Delia Lee PA-C /[id number]
[2017-03-05] MEDS: Metoclopramide 10 MG/2 ML SDV IVPUSH PRN ×2 (14:40→21:45)
[2017-03-05] MEDS: Lurasidone 40 MG Tab PO SCH (20:55)
[2017-03-05] MEDS: traZODone 50 MG Tab PO SCH (20:57)
[2017-03-06] MEDS: Formoterol/Mometasone 200-5 MCG 8.8 GM Inhaler IH SCH ×2 (07:07→20:32)
[2017-03-06] MEDS: Docusate Sodium 100 MG Cap PO SCH (08:19)
[2017-03-06] MEDS: Celecoxib 200 MG Cap PO SCH (08:19)
[2017-03-06] MEDS: Cyanocobalamin (Vitamin B12) 1,000 MCG Tab PO SCH (08:20)
[2017-03-06] MEDS: Multivitamins with Iron Tab.Chew PO SCH ×2 (08:20→20:31)
[2017-03-06] MEDS: Topiramate 100 MG Tab PO SCH ×2 (08:20→20:35)
[2017-03-06] MEDS: Insulin Aspart 100 Units/ML 3 ML Pen SUBCUT PRN ×2 (08:26→12:32)
[2017-03-06] MEDS: metFORMIN 500 MG Tab PO SCH ×2 (08:27→17:43)
[2017-03-06] MEDS: Fluticasone Propionate Nasal Spray 16 GM Bottle NASBOTH SCH ×2 (08:27→20:32)
[2017-03-06] MEDS: Insulin Detemir 100 Units/ML 3 ML Pen SUBCUT SCH (08:28)
[2017-03-06] MEDS: oxyCODONE 5 MG Tab PO PRN ×2 (08:33→20:41)
[2017-03-06] MEDS: VERIFY FENT PATCH TOP SCH ×2 (10:14→20:35)
[2017-03-06] MEDS: Modafinil 100 MG Tab PO SCH (10:17)
[2017-03-06] MEDS: Loratadine 10 MG Tab PO SCH (12:32)
[2017-03-06] MEDS: Metoclopramide 10 MG/2 ML SDV IVPUSH PRN (15:55)
[2017-03-06] MEDS: Lurasidone 40 MG Tab PO SCH (20:33)
[2017-03-06] MEDS: traZODone 50 MG Tab PO SCH (20:36)
[2017-03-07] MEDS: Formoterol/Mometasone 200-5 MCG 8.8 GM Inhaler IH SCH ×2 (07:09→20:47)
[2017-03-07] MEDS: oxyCODONE 5 MG Tab PO PRN ×2 (08:32→21:00)
[2017-03-07] MEDS: metFORMIN 500 MG Tab PO SCH ×2 (08:33→16:49)
[2017-03-07] MEDS: Cyanocobalamin (Vitamin B12) 1,000 MCG Tab PO SCH (08:33)
[2017-03-07] MEDS: Loratadine 10 MG Tab PO SCH (08:33)
[2017-03-07] MEDS: Celecoxib 200 MG Cap PO SCH (08:33)
[2017-03-07] MEDS: Fluticasone Propionate Nasal Spray 16 GM Bottle NASBOTH SCH ×2 (08:33→20:47)
[2017-03-07] MEDS: Docusate Sodium 100 MG Cap PO SCH (08:34)
[2017-03-07] MEDS: Multivitamins with Iron Tab.Chew PO SCH ×2 (08:35→20:47)
[2017-03-07] MEDS: Insulin Aspart 100 Units/ML 3 ML Pen SUBCUT PRN ×2 (08:35→12:53)
[2017-03-07] MEDS: Topiramate 100 MG Tab PO SCH ×2 (08:35→20:50)
[2017-03-07] MEDS: Insulin Detemir 100 Units/ML 3 ML Pen SUBCUT SCH ×2 (08:49→16:47)
--- NOTE | 2017-03-07 09:32 | PN ---
DATE OF SERVICE: 03/07/2017 SUBJECTIVE: Tarah has been up ambulating. Afebrile. Blood sugars over the last 24 hours have been 232, 218, 63, and this morning 162. She received 30 units of Levemir last evening. Tarah states that when her blood sugar was 63, she was given regular apple juice, and she said it made her feel lightheaded. Requesting Bumex in anticipation of going home with the hopes of not having to take the potassium. We discussed aspartame was on her allergy list, and she said she is not sure why that was put on there and that she is not allergic to it. REVIEW OF SYSTEMS: Remainder of review of systems negative for any pertinent positives and negatives. OBJECTIVE: GENERAL: Tarah Reynoso is a 52-year-old female. She is alert and orientated. Face is flushed. VITAL SIGNS: TPR is 98.5, 89, 17, blood pressure 171/75. HEENT: Negative. NECK: Supple. HEART: Regular rate and rhythm. LUNGS: Clear. ABDOMEN: Incisions look good. The left trocar site is dry. There are scabs over area. Sutures are in place. There is no drainage, redness, or tenderness around the suture sites. EXTREMITIES: Without peripheral edema. ASSESSMENT: 1. Uncontrolled diabetes. 2. Dehydration. 3. Status post Mimi-en-Y gastric bypass surgery. 4. Morbid obesity. 5. Placement of central line on Sunday03/03/2017. PLAN: 1. Bumex 1 mg p.o. daily. 2. Discontinue sutures and place benzoin with Steri-Strips on incision. 3. Potassium acetate 40 mEq IV one time today. 4. KCl 40 mEq IV today. 5. Levemir 15 units b.i.d. 6. Continue to decline any juice or regular Jell-O to avoid hypoglycemia reaction. 7. We will evaluate p.r.n. or in a.m. Delia Lee PA-C /[id number]
[2017-03-07] MEDS: Bumetanide 1 MG Tab PO SCH (09:42)
[2017-03-07] MEDS: VERIFY FENT PATCH TOP SCH ×2 (09:43→20:49)
[2017-03-07] MEDS: fentaNYL 25 MCG/HR Transdermal Patch TRDERM SCH (09:49)
[2017-03-07] MEDS: Modafinil 100 MG Tab PO SCH (09:49)
[2017-03-07] MEDS: Potassium Chloride 20 MEQ in Premix Bag 1 BAG IV SCH ×2 (13:00→16:46)
[2017-03-07] MEDS: Metoclopramide 10 MG/2 ML SDV IVPUSH PRN (18:28)
[2017-03-07] MEDS: ClonazePAM 0.5 MG Tab PO PRN (19:15)
[2017-03-07] MEDS: Lurasidone 40 MG Tab PO SCH (20:49)
[2017-03-07] MEDS: traZODone 50 MG Tab PO SCH (20:50)
[2017-03-08] MEDS: Formoterol/Mometasone 200-5 MCG 8.8 GM Inhaler IH SCH ×2 (07:19→20:23)
[2017-03-08] MEDS: metFORMIN 500 MG Tab PO SCH ×2 (07:51→16:35)
[2017-03-08] MEDS: Insulin Detemir 100 Units/ML 3 ML Pen SUBCUT SCH ×2 (07:52→16:27)
[2017-03-08] MEDS: oxyCODONE 5 MG Tab PO PRN (07:57)
[2017-03-08] MEDS: Modafinil 100 MG Tab PO SCH (08:02)
[2017-03-08] MEDS: Celecoxib 200 MG Cap PO SCH (08:03)
[2017-03-08] MEDS: Docusate Sodium 100 MG Cap PO SCH (08:03)
[2017-03-08] MEDS: Bumetanide 1 MG Tab PO SCH (08:05)
[2017-03-08] MEDS: Topiramate 100 MG Tab PO SCH ×2 (08:05→20:21)
[2017-03-08] MEDS: VERIFY FENT PATCH TOP SCH ×2 (08:07→20:21)
[2017-03-08] MEDS: Multivitamins with Iron Tab.Chew PO SCH ×2 (08:08→20:20)
[2017-03-08] MEDS: Loratadine 10 MG Tab PO SCH (08:09)
[2017-03-08] MEDS: Cyanocobalamin (Vitamin B12) 1,000 MCG Tab PO SCH (08:10)
[2017-03-08] MEDS: Fluticasone Propionate Nasal Spray 16 GM Bottle NASBOTH SCH ×2 (08:11→20:20)
[2017-03-08] MEDS ORDERED: Insulin Detemir 100 Units/ML 3 ML Pen SUBCUT SCH (08:17)
[2017-03-08] MEDS: Metoclopramide 10 MG/2 ML SDV IVPUSH PRN ×2 (09:30→18:26)
--- NOTE | 2017-03-08 09:48 | PN ---
DATE OF SERVICE: 03/08/2017 SUBJECTIVE: Tarah's blood sugars have been 162, 287, 156, 176, and this morning it was 118. She is questioning if she can start on a step-3 diet. She has been up ambulating, participating in occupational therapy and physical therapy. Oral intake 2500 and she has consumed 50% of breakfast and lunch, and 100% of supper. REVIEW OF SYSTEMS: Remainder of review of systems negative for any pertinent positives and negatives. OBJECTIVE: GENERAL: Tarah Reynoso is a 52-year-old female. She is alert and orientated in good spirits this morning. VITAL SIGNS: TPR is 98.3, 93, 16, blood pressure 127/77. HEENT: Negative. NECK: Supple. HEART: Regular rate and rhythm. LUNGS: Clear. ABDOMEN: Soft, nontender. EXTREMITIES: Reveal trace peripheral edema. ASSESSMENT: 1. Status post Mimi-en-Y gastric bypass surgery. 2. Uncontrolled diabetes. 3. Dehydration, resolved. 4. Morbid obesity. 5. Unspecified surgical malabsorption. 6. B12 deficiency. 7. Placement of central line on 03/03/2017. PLAN: Advanced to step-3 gastric bypass diet. One new food at a time. Dietary Department was instructed, also that she has no teeth and is to be gluten free. We will check CBC, CMP, mag, phos in a.m. Continue to ambulate in the [place]. We will evaluate p.r.n. or in a.m. Delia Lee PA-C /[id number]
[2017-03-08] MEDS: ClonazePAM 0.5 MG Tab PO PRN (20:18)
[2017-03-08] MEDS: Lurasidone 40 MG Tab PO SCH (20:20)
[2017-03-08] MEDS: traZODone 50 MG Tab PO SCH (20:22)
[2017-03-08] MEDS ORDERED: Insulin Aspart 100 Units/ML 3 ML Pen SUBCUT ONE (21:40)
[2017-03-09] MEDS: Formoterol/Mometasone 200-5 MCG 8.8 GM Inhaler IH SCH ×2 (07:12→20:44)
[2017-03-09] MEDS: Docusate Sodium 100 MG Cap PO SCH (08:51)
[2017-03-09] MEDS: Cyanocobalamin (Vitamin B12) 1,000 MCG Tab PO SCH (08:51)
[2017-03-09] MEDS: metFORMIN 500 MG Tab PO SCH ×2 (08:51→17:12)
[2017-03-09] MEDS: Multivitamins with Iron Tab.Chew PO SCH ×2 (08:51→20:42)
[2017-03-09] MEDS: Bumetanide 1 MG Tab PO SCH (08:52)
[2017-03-09] MEDS: Loratadine 10 MG Tab PO SCH (08:52)
[2017-03-09] MEDS: Celecoxib 200 MG Cap PO SCH (08:52)
[2017-03-09] MEDS: Fluticasone Propionate Nasal Spray 16 GM Bottle NASBOTH SCH ×2 (08:52→20:43)
[2017-03-09] MEDS: Potassium Chloride 20 MEQ in Premix Bag 1 BAG IV SCH ×3 (08:53→14:14)
[2017-03-09] MEDS: VERIFY FENT PATCH TOP SCH ×2 (08:53→20:44)
[2017-03-09] MEDS: Topiramate 100 MG Tab PO SCH ×2 (08:54→20:46)
[2017-03-09] MEDS: Insulin Aspart 100 Units/ML 3 ML Pen SUBCUT SCH ×3 (08:54→17:15)
[2017-03-09] MEDS: Insulin Detemir 100 Units/ML 3 ML Pen SUBCUT SCH ×3 (08:56→17:12)
[2017-03-09] MEDS: oxyCODONE 5 MG Tab PO PRN ×2 (09:08→21:02)
[2017-03-09] MEDS: Modafinil 100 MG Tab PO SCH (09:08)
--- NOTE | 2017-03-09 10:15 | PN ---
DATE OF SERVICE: 03/09/2017 SUBJECTIVE: Tarah's blood sugars over the past 24 hours starting at 0700 hours have been 118, 301, 312, and 373. She has been receiving Levemir 12 units twice daily, metformin a 1000 mg p.o. b.i.d. When her blood sugar was elevated over 300 last night, she did have 15 units of NovoLog. Potassium this morning was 3.5. She is getting Bumex, so that is holding her potassium better than the Lasix. Creatinine this morning was 0.7, hemoglobin is 12.2. Tarah did report she did not feel well after eating. She was just started on a step-3 gastric bypass diet. Orders were written to Dietary, that this was her first. She is just starting step-3, one new food a day, no eggs and upper food for her. She is unable to make her own choices. The patient has no teeth and she should be gluten free. The patient at noon received turkey, corn, mashed potatoes, and carrots, and for supper she received a full tray also, but only ate rice and applesauce. REVIEW OF SYSTEMS: Remainder of review of systems negative for any pertinent positives and negatives. OBJECTIVE: GENERAL: Tarah Reynoos is a 52-year-old female. She is alert and orientated, in good spirits this morning. VITAL SIGNS: TPR is 98.5, 96, 18, blood pressure 163/72. HEENT: Negative. NECK: Supple. HEART: Regular rate and rhythm. LUNGS: Clear. ABDOMEN: Soft and nontender. EXTREMITIES: Without peripheral edema. ASSESSMENT: 1. Status post Mimi-en-Y gastric bypass surgery. 2. Uncontrolled diabetes, type 1. 3. Dehydration, resolved. 4. Morbid obesity. 5. Unspecified surgical malabsorption. 6. B12 deficiency. 7. Placement of central line on 03/03/2017 for inadequate peripheral access. PLAN: KCl of 60 mEq in 3 divided doses with lidocaine IV today. After consultation with Delma Mendoza RN, early childhood educator aide and certified bariatric nurse, she is to have 1 unit of NovoLog with each meal and increase Levemir to 20 units b.i.d. Check CBC, CMP, mag, phos in a.m. Madie Marques RD, will be notified with some reconciliation in regard to Tarah getting the correct diet in regard to she is a new Mimi-en-Y just starting step-3 and also with some concerns of getting her diabetes under control. She will be planning to be discharged on 03/12/2017. Delia Lee PA-C /[id number]
--- NOTE | 2017-03-09 10:24 | PN ---
DATE OF SERVICE: 03/06/2017 The patient has been afebrile with stable vital signs. She did have a 1-month low blood sugar of 35 last evening. This came up satisfactorily. We will have certified adapted physical educator review the diabetic management today and see what we can do to avoid those low blood sugar episodes. Otherwise, we will continue replenishing the potassium and tentatively plan for discharge home on Sunday with discharge planning working on that. It is possible there may not be sufficient nursing to help her set up things at home and we might need to keep her until Sunday. Mj Sibley MD /[id number]
[2017-03-09] MEDS: Insulin Aspart 100 Units/ML 3 ML Pen SUBCUT PRN ×2 (13:14→17:14)
[2017-03-09] MEDS: Lurasidone 40 MG Tab PO SCH (20:44)
[2017-03-09] MEDS: traZODone 50 MG Tab PO SCH (20:45)
[2017-03-09] MEDS: Metoclopramide 10 MG/2 ML SDV IVPUSH PRN (21:03)
[2017-03-10] MEDS: Formoterol/Mometasone 200-5 MCG 8.8 GM Inhaler IH SCH ×2 (07:16→20:54)
[2017-03-10] MEDS: metFORMIN 500 MG Tab PO SCH ×2 (07:58→16:50)
[2017-03-10] MEDS: Insulin Detemir 100 Units/ML 3 ML Pen SUBCUT SCH ×2 (07:58→16:49)
[2017-03-10] MEDS: Insulin Aspart 100 Units/ML 3 ML Pen SUBCUT PRN ×3 (07:59→16:51)
[2017-03-10] MEDS: Insulin Aspart 100 Units/ML 3 ML Pen SUBCUT SCH ×3 (07:59→16:51)
[2017-03-10] MEDS: Fluticasone Propionate Nasal Spray 16 GM Bottle NASBOTH SCH ×2 (08:08→20:54)
[2017-03-10] MEDS: oxyCODONE 5 MG Tab PO PRN ×2 (08:18→21:03)
[2017-03-10] MEDS: Modafinil 100 MG Tab PO SCH (08:52)
[2017-03-10] MEDS: VERIFY FENT PATCH TOP SCH ×2 (08:52→20:48)
[2017-03-10] MEDS: Docusate Sodium 100 MG Cap PO SCH (08:53)
[2017-03-10] MEDS: Cyanocobalamin (Vitamin B12) 1,000 MCG Tab PO SCH (08:54)
[2017-03-10] MEDS: Multivitamins with Iron Tab.Chew PO SCH ×2 (08:54→20:53)
[2017-03-10] MEDS: Topiramate 100 MG Tab PO SCH ×2 (08:54→20:55)
[2017-03-10] MEDS: Loratadine 10 MG Tab PO SCH (08:54)
[2017-03-10] MEDS: Bumetanide 1 MG Tab PO SCH (08:54)
[2017-03-10] MEDS: Celecoxib 200 MG Cap PO SCH (08:54)
[2017-03-10] MEDS: fentaNYL 25 MCG/HR Transdermal Patch TRDERM SCH (09:01)
[2017-03-10] MEDS: Magnesium Hydroxide 400 MG/5 ML Susp 30 ML Cup PO PRN (09:01)
[2017-03-10] MEDS: Spironolactone 25 MG Tab PO SCH (11:28)
[2017-03-10] MEDS: Metoclopramide 10 MG Tab PO PRN ×2 (14:53→21:36)
[2017-03-10] MEDS ORDERED: Potassium Phosphates 15 MMOLE in Sodium Chloride 0.9% 150 ML IV SCH (17:00)
[2017-03-10] MEDS: Potassium Phosphates 15 MMOLE in Sodium Chloride 0.9% 150 ML IV SCH ×2 (18:04→21:03)
[2017-03-10] MEDS: Lurasidone 40 MG Tab PO SCH (20:54)
[2017-03-10] MEDS: traZODone 50 MG Tab PO SCH (20:55)
[2017-03-11] MEDS: Potassium Phosphates 15 MMOLE in Sodium Chloride 0.9% 150 ML IV SCH (00:38)
[2017-03-11] MEDS: Formoterol/Mometasone 200-5 MCG 8.8 GM Inhaler IH SCH ×2 (07:20→22:58)
[2017-03-11] MEDS: Insulin Detemir 100 Units/ML 3 ML Pen SUBCUT SCH ×3 (08:33→16:26)
[2017-03-11] MEDS: Insulin Aspart 100 Units/ML 3 ML Pen SUBCUT SCH ×3 (08:35→16:29)
[2017-03-11] MEDS: metFORMIN 500 MG Tab PO SCH ×2 (08:39→16:26)
[2017-03-11] MEDS: Spironolactone 25 MG Tab PO SCH (08:40)
[2017-03-11] MEDS: Celecoxib 200 MG Cap PO SCH (08:40)
[2017-03-11] MEDS: Multivitamins with Iron Tab.Chew PO SCH ×2 (08:41→22:58)
[2017-03-11] MEDS: Loratadine 10 MG Tab PO SCH (08:42)
[2017-03-11] MEDS: Docusate Sodium 100 MG Cap PO SCH (08:43)
[2017-03-11] MEDS: Topiramate 100 MG Tab PO SCH ×2 (08:44→23:00)
[2017-03-11] MEDS: Fluticasone Propionate Nasal Spray 16 GM Bottle NASBOTH SCH ×2 (08:44→22:58)
[2017-03-11] MEDS: Cyanocobalamin (Vitamin B12) 1,000 MCG Tab PO SCH (08:45)
[2017-03-11] MEDS: oxyCODONE 5 MG Tab PO PRN ×2 (08:50→22:56)
[2017-03-11] MEDS: Modafinil 100 MG Tab PO SCH (08:52)
[2017-03-11] MEDS: Potassium Chloride 20 MEQ in Premix Bag 1 BAG IV SCH ×3 (11:41→16:39)
[2017-03-11] MEDS: VERIFY FENT PATCH TOP SCH ×2 (11:50→22:59)
[2017-03-11] MEDS: Insulin Aspart 100 Units/ML 3 ML Pen SUBCUT PRN ×2 (11:55→16:29)
--- NOTE | 2017-03-11 12:33 | PN ---
DATE OF SERVICE: 03/11/2017 SUBJECTIVE: Tarah's blood sugars have been within the past 24 hours 152, 239, 275, and this morning was 112. She is receiving sliding scale, Step-2 diet with gluten-free cereals, a flaky chicken and beans. She will plan to go home tomorrow. She is getting Levemir 20 units twice daily and her Bumex was changed to spironolactone. Her potassium this morning was 3.7. She states she is feeling good, she is up ambulating. REVIEW OF SYSTEMS: Remainder of review of systems negative for any pertinent positives and negatives. OBJECTIVE: GENERAL: Tarah Reynoso is a 52-year-old female. She is alert, orientated, ambulating in the [place]. VITAL SIGNS: TPR is 97.9, 97, 20, and blood pressure 158/82. HEENT: Negative. NECK: Supple. HEART: Regular rate and rhythm. LUNGS: Clear. ABDOMEN: Soft and nontender. EXTREMITIES: Without peripheral edema. ASSESSMENT: 1. Status post Mimi-en-Y gastric bypass surgery. 2. Uncontrolled diabetes, type 1. 3. Dehydration, resolved. 4. Morbid obesity. 5. Unspecified surgical malabsorption. 6. B12 deficiency. 7. Placement of central line on 03/03/2017 for inadequate peripheral access. PLAN: Increase Levemir to 25 units b.i.d., continue sliding scale. Today, we will give her 60 mEq of potassium to keep her levels up with planning discharge in a.m. We will continue to work on education of bariatric dietary reinforcement. We will evaluate p.r.n. or in a.m. We will also increase the NovoLog to 2 units subcu t.i.d. with meals. CBC, CMP, mag, and phos to be rechecked in a.m. Delia Lee PA-C /[id number]
[2017-03-11] MEDS: Metoclopramide 10 MG Tab PO PRN (20:21)
[2017-03-11] MEDS: Lurasidone 40 MG Tab PO SCH (22:59)
[2017-03-11] MEDS: traZODone 50 MG Tab PO SCH (23:00)
[2017-03-12 07:13] VITALS: BP 142/88
[2017-03-12] MEDS: Formoterol/Mometasone 200-5 MCG 8.8 GM Inhaler IH SCH (07:15)
[2017-03-12] MEDS ORDERED: Insulin Detemir 100 Units/ML 3 ML Pen SUBCUT SCH (07:30)
[2017-03-12] MEDS: Insulin Detemir 100 Units/ML 3 ML Pen SUBCUT SCH (08:41)
[2017-03-12] MEDS: oxyCODONE 5 MG Tab PO PRN (08:55)
[2017-03-12] MEDS: metFORMIN 500 MG Tab PO SCH (08:56)
[2017-03-12] MEDS: Cyanocobalamin (Vitamin B12) 1,000 MCG Tab PO SCH (08:58)
[2017-03-12] MEDS: Spironolactone 25 MG Tab PO SCH (08:58)
[2017-03-12] MEDS: Multivitamins with Iron Tab.Chew PO SCH (08:58)
[2017-03-12] MEDS: Topiramate 100 MG Tab PO SCH (08:59)
[2017-03-12] MEDS: Celecoxib 200 MG Cap PO SCH (08:59)
[2017-03-12] MEDS: Loratadine 10 MG Tab PO SCH (08:59)
[2017-03-12] MEDS: VERIFY FENT PATCH TOP SCH (09:00)
[2017-03-12] MEDS: Fluticasone Propionate Nasal Spray 16 GM Bottle NASBOTH SCH (09:01)
[2017-03-12] MEDS: Docusate Sodium 100 MG Cap PO SCH (09:01)
[2017-03-12] MEDS: Insulin Aspart 100 Units/ML 3 ML Pen SUBCUT SCH (09:03)
[2017-03-12] MEDS: Modafinil 100 MG Tab PO SCH (09:25)
--- NOTE | 2017-03-12 13:46 | PN ---
DATE OF SERVICE: 03/10/2017 The patient has been afebrile with stable vital signs. Blood sugar control is somewhat variable. We are getting her diet a little bit more on an even keel, hopefully that will help with regard to the blood sugar control. Otherwise, we will continue to order potassium. We will give her K-Phos and Kayexalate with it, a combined total of 105 mEq today and check some labs in the morning. Bumex as being a loop diuretic, I think we will shift over to spironolactone, which would be a potassium-sparing diuretic and she will likely not necessarily need to take a lot of extra potassium while on that. Tentatively, she is ready for discharge to [facility] on Sunday. The Miranda catheter would need to stay in for a period of time as I think we will probably still need to intermittently hydrate her and such as time goes by. Mj Sibley MD /[id number]
--- NOTE | 2017-03-13 10:09 | DISCH ---
ADMISSION DIAGNOSES: 1. Status post Mimi-en-Y gastric bypass surgery. 2. Unspecified surgical malabsorption. 3. B12 deficiency. 4. Diabetes type 1 uncontrolled. 5. Dehydration. DISCHARGE DIAGNOSES: 1. Placement of central line for inadequate peripheral access, 03/03/2017. 2. Status post Mimi-en-Y gastric bypass surgery. 3. Uncontrolled diabetes type 2. 4. Dehydration, resolved. 5. Morbid obesity. 6. Unspecified surgical malabsorption. HISTORY: Tarah Reynoso is a 52-year-old female, who had a Mimi-en-Y gastric bypass surgery. She did return home to assisted living, and returned to hospital as a direct admit with high blood sugars dehydration and poor oral intake. She was admitted on 03/02/2017. She had a Miranda catheter placed on 03/03/2017. Her potassium was replaced. Her blood sugars were monitored closely. Insulin was adjusted. Her diet was progressed to a step-3 gastric bypass diet, which she could only tolerate a step-2 diet with shredded chicken, gluten free cream of wheat, and baked beans. Tarah also is lactose intolerant, gluten intolerance and has no teeth. Tarah's potassium was replaced as well as potassium acetate. She was changed to spironolactone, which is potassium-sparing due to her refusal of taking the oral potassium. Blood sugars were monitored and worked with as far as she was put on the sliding scale with mealtime insulin. She verbalized her understanding on changes in medication along with her diet and activity. She is able to be discharged to her assisted living home with home health care for occupational therapy and physical therapy. Date of discharge is 03/12/2017. PHYSICAL EXAMINATION: GENERAL: Tarah Dowd is a 52-year-old female. VITAL SIGNS: Height 5 feet 4 inches. Weight is 236 pounds. TPR is 98.1, 99, 18, and blood pressure 142/88. HEENT: Negative. NECK: Supple. HEART: Regular rate and rhythm. LUNGS: Clear. ABDOMEN: Soft and nontender. EXTREMITIES: Without peripheral edema. DISPOSITION: Discharged to home. CONDITION: Stable and improving. FOLLOWUP APPOINTMENT: With Delia Lee PA-C, on 03/21/2017 at 11:00 a.m. HOME MEDICATIONS: Levemir 20 units subcu b.i.d., spironolactone 50 mg p.o. daily, NovoLog 2 units with each meal, Ventolin inhaler 2 puffs every 4 hours, multivitamin chewable 1 twice daily, Fiorinal 50/325/40 one capsule twice daily p.r.n. headache, Symbicort 2 puffs inhaled twice daily, Klonopin 0.5 mg oral daily p.r.n., vitamin B12 at 1000 mcg sublingual daily, Dextran, Artificial Tears one drop in each eye p.r.n., Gold Pratt diabetic cream 1 applicator twice daily, Colace 200 mg oral daily, Estrace 0.01% vaginal cream Sunday, Sunday, and Sunday, Flonase 1 spray nasal twice daily, and glucagon 1 mg injection as directed. Discontinue Tresiba per patient request, prefers to be on the Levemir. Imodium 20 mL oral as directed p.r.n. constipation, Claritin 10 mg oral daily, Latuda 60 mg oral daily, magnesium hydroxide, simethicone antacid liquid 15 mL every 3 hours p.r.n. constipation, milk of magnesia 30 mL of oral daily p.r.n. constipation, Flexeril 1 tablet oral q.6 hours p.r.n. dizziness, Lubriderm daily moisturizer cream one applicator twice daily, Modafinil 200 mg oral daily (Provigil), Dulera 200/5 mcg 2 puffs inhaled twice daily, multivitamin chewable 1 twice daily, nitrofurantoin monohydrate MCR 100 mg oral as directed, Nystatin 1 as directed, Zofran ODT 4 mg sublingual every 6 hours p.r.n. nausea, polyethylene glycol 3350 17 g twice daily, Phenergan 25 mg oral every 6 hours, topiramate 100 mg oral twice daily, Wellbutrin 75 mg oral twice daily, Duragesic 25 mcg transdermal every 72 hours, Diabetic Tussin 10 mL every 4 hours, metformin 1000 mg oral twice daily, oxycodone 1 tablet oral 3 times a day, and trazodone 150 mg oral daily. Stop taking the Celebrex, furosemide, natural fiber therapy, potassium chloride, and Tresiba. DIET: After discharge, step-2 gastric bypass diet with cream of wheat, shredded chicken, and beans. Drink 8 to 10 glasses of water a day. ACTIVITY: After discharge, walk 6 to 8 times daily, short distance inside your apartment. Shower/bathing, may shower. DISCHARGE INSTRUCTIONS: Notify provider if any fever, nausea, or vomiting. Wear abdominal binder for 2 weeks, and then as tolerated. SPECIAL INSTRUCTIONS: 1. Check blood sugars 4 times a day, record the results and bring to clinic appointments. Call with blood sugars daily to the clinic at [phone]. 2. Keep a record of food you eat and liquids that you drink and bring to clinic appointments. 3. Miranda catheter care per protocol of home health care nursing services.
== END 2017-03-12 11:14 | disposition home health service (06) | DRG 638 ==
LOC: JP.ICU 17:20 → JP.2SS 03-03 15:30
PROVIDERS: ADMIT Surgery; ATTEND Surgery
PROC: 02HV33Z Insertion of Infusion Device into Superior Vena Cava, Percutaneous Approach (ICD-10-PCS; principal; 2017-03-03)
PROC: B518ZZA Fluoroscopy of Superior Vena Cava, Guidance (ICD-10-PCS; principal; 2017-03-03)
DX: E10.65 Type 1 diabetes mellitus with hyperglycemia (principal); Z68.41 Body mass index [BMI] 40.0-44.9, adult; K91.2 Postsurgical malabsorption, not elsewhere classified; Z86.711 Personal history of pulmonary embolism; Z98.890 Other specified postprocedural states; E10.319 Type 1 diabetes mellitus with unspecified diabetic retinopathy without macular edema; E10.42 Type 1 diabetes mellitus with diabetic polyneuropathy; Z79.4 Long term (current) use of insulin; E66.01 Morbid (severe) obesity due to excess calories; E86.0 Dehydration; E88.81 Metabolic syndrome and other insulin resistance; Z98.84 Bariatric surgery status; Z98.0 Intestinal bypass and anastomosis status; E87.6 Hypokalemia; E53.8 Deficiency of other specified B group vitamins; G40.909 Epilepsy, unspecified, not intractable, without status epilepticus; J45.909 Unspecified asthma, uncomplicated; M79.7 Fibromyalgia; Z86.14 Personal history of Methicillin resistant Staphylococcus aureus infection; Z87.891 Personal history of nicotine dependence; E73.9 Lactose intolerance, unspecified; K00.0 Anodontia; Z79.82 Long term (current) use of aspirin; Z88.6 Allergy status to analgesic agent; Z88.1 Allergy status to other antibiotic agents; Z91.018 Allergy to other foods; Z88.0 Allergy status to penicillin; Z91.013 Allergy to seafood; Z88.2 Allergy status to sulfonamides; Z88.8 Allergy status to other drugs, medicaments and biological substances
CPT/HCPCS: 36415; 80048; 80053; 82962; 83735; 84100; 85025; 85027; 94640-76; 94664; 97110-GO; 97110-GP; 97161-GP; 97165-GO; 97530-GP; A9270-GY; J1642; J2020; J2250; J2704; J2765; J3010; J3411; J3475; J3480; J3490; J7030; J7040; J7042; J7050; J7120